=== PATIENT | male | born 1975 | race Caucasian/White ===

== ENCOUNTER 2021-11-26 12:47 | Outpatient (CLI) | payer OTHER, SELFPAY ==
--- NOTE | ~2021-11-26 | XR_ITS ---
EXAMINATION:XR_[id number]_CR DATE: 11/26/2021 13:04 INDICATION: Neck pain TECHNIQUE: AP, lateral, and odontoid views of the cervical spine are provided. COMPARISON: None FINDINGS: Alignment is normal. The odontoid is intact. No fracture is identified. Vertebral body heig hts and disk spaces are normal. Prevertebral soft tissues are normal. IMPRESSION: 1. No acute osseous abnormality. Reviewed, dictated and finalized at location F.
== END 2021-11-26 12:48 | disposition home or self-care (01) ==
PROVIDERS: PCP Family Medicine; Visit Provider Family Medicine
DX: M54.12 Radiculopathy, cervical region (principal)
CPT/HCPCS: 72040

== ENCOUNTER 2023-03-02 06:38 | Day surgery (SDC) | payer OTHER, SELFPAY ==
[2022-12-12 14:52] VITALS: BMI 34.5
[2023-02-10 14:55] VITALS: BMI 33.7
[2023-03-02 07:25] VITALS: BP 129/86; PULSE 95; RESP 14; TEMP 36.3; O2SAT 98
[2023-03-02] MEDS: LACTATED RINGERS 1,000 ML 150 ML IV CONT (07:26)
--- NOTE | 2023-03-02 07:45 | P.PNAN_ITS ---
Anes - Initial Pre Proc Eval Procedure: Operation Date: 03/02/23 08:30 Proposed Procedures p Screening Colonoscopy - Brennan Fairbanks MD Date/Time: 03/02/23 07:45 Surgeon: Brennan Fairbanks MD Pre Op Diagnosis: History of Colon Polyps Patient Data Age: 47 Gender: M Height: 1.83 m Weight: 116.3 kg Last Vital Signs Temp 36.3 C L 03/02/23 07:25 Pulse 95 03/02/23 07:25 Resp 14 03/02/23 07:25 BP 129/86 03/02/23 07:25 Pulse Ox 98 03/02/23 07:25 O2 Del Method Room Air 03/02/23 07:25 Allergies Allergy/AdvReac Type Severity Reaction Status Date / Time house dust Allergy Unknown unk Verified 03/02/23 07:14 mold Allergy Unknown unk Verified 03/02/23 07:14 No Known Allergies Allergy Verified 03/02/23 07:14 Home Medications Medication Instructions Recorded Confirmed Type fluticasone propionate 50 1 spray intranasal DAILY #9.9 mL 06/06/19 03/02/23 Rx mcg/actuation nasal spray,suspension (Flonase Allergy Relief) atorvastatin 20 mg tablet (Lipitor) 20 mg PO DAILY #90 tabs 12/18/22 03/02/23 Rx lisinopril 40 mg tablet 40 mg PO DAILY #90 tabs 12/18/22 03/02/23 Rx Patient hx anesthesia problems: none Family hx anesthesia problems: none Results Review: All pre-operative results and documents have been reviewed as part of the pre- operative evaluation. [facility] Past Medical History Medical History Acoustic neuroma HLD (hyperlipidemia) HTN (hypertension) Surgical History Surgical History (Updated 03/02/23 @ 07:45 by Santhosh Fair MD) History of nephrectomy Family History Family History Father Hypertension Cerebrovascular accident Social History Social History Smoking status: Never smoker Second hand tobacco smoke exposure: No Alcohol intake: current Drinks per week: 12 Substance use: never Substance use type: does not use Living arrangements: with family Occupation/Education: occupation Gender identity (if verbalized by the patient): Male Sexual Orientation (if Verbalized by the Patient): Straight or Heterosexual Spiritual care concerns: No Anes - Eval Final PreProcedure Day of Procedure 03/02/23 07:45 Patient weight: obese Heart: regular rate and rhythm Lungs: clear to auscultation Airway: Mallampati scale class II Neurological: alert and oriented Last oral intake: >/= 8 hours ASA classification: II Emergent: no Anesthetic plan: proceed Anesthesia type and monitoring: general GIVS and standard monitoring Results Review: All pre-operative results and documents have been reviewed as part of the pre- operative evaluation. Informed Consent: The patient's anesthetic plan and its attendant risks and benefits were discussed with the patient/family/POA. Questions were solicited and answers provided to the satisfaction of the patient/family/POA.
--- NOTE | 2023-03-02 08:22 | PM.HPGS ---
History of Present Illness History of Present Illness Consent: Risks, benefits, and alternatives have been discussed and questions answered. Patient agrees to proceed with procedure. Chief complaint: History of Colon Polyps Narrative: Luis Rogers is a 47 year old male with last colonoscopy 2014 Review of Systems Constitutional: Constitutional: Denies headache(s) and Denies weakness Eyes: Eyes: Denies blurry vision ENT: Reports Normal hearing present, Denies headache(s) and Denies neck pain Cardiovascular: Cardiovascular: Denies chest pain and Denies dyspnea Respiratory: Respiratory: Denies dyspnea Gastrointestinal: Gastrointestinal: Reports no additional gastrointestinal complaints Genitourinary: Genitourinary: Denies dysuria Musculoskeletal: Musculoskeletal: Denies neck pain Integumentary/Breasts: Skin/Breast: Denies dry skin Neurologic: Reports Normal hearing present, Denies headache(s) and Denies weakness Psychiatric: Psychiatric: Denies anxiety Endocrine: Endocrine: Denies change in body appearance Hematologic/Lymphatic: Hematologic/Lymphatic: Denies easy bleeding Allergic/Immunologic: Allergic/Immunologic: Denies urticaria PMFSH Past Medical History Medical History (Updated 03/02/23 @ 08:23 by Brennan Fairbanks MD) Acoustic neuroma Colon cancer screening HLD (hyperlipidemia) HTN (hypertension) Surgical History Surgical History (Updated 03/02/23 @ 07:45 by Santhosh Fair MD) History of nephrectomy Family History Family History Father Hypertension Cerebrovascular accident Social History Social History Smoking status: Never smoker Second hand tobacco smoke exposure: No Alcohol intake: current Drinks per week: 12 Substance use: never Substance use type: does not use Living arrangements: with family Occupation/Education: occupation Gender identity (if verbalized by the patient): Male Sexual Orientation (if Verbalized by the Patient): Straight or Heterosexual Spiritual care concerns: No Meds Home Medications and Allergies Home Medications Medication Instructions Recorded Confirmed Type fluticasone propionate 50 1 spray intranasal DAILY #9.9 mL 06/06/19 03/02/23 Rx mcg/actuation nasal spray,suspension (Flonase Allergy Relief) atorvastatin 20 mg tablet (Lipitor) 20 mg PO DAILY #90 tabs 12/18/22 03/02/23 Rx lisinopril 40 mg tablet 40 mg PO DAILY #90 tabs 12/18/22 03/02/23 Rx Allergies Allergy/AdvReac Type Severity Reaction Status Date / Time house dust Allergy Unknown unk Verified 03/02/23 07:14 mold Allergy Unknown unk Verified 03/02/23 07:14 No Known Allergies Allergy Verified 03/02/23 07:14 Vital Signs Vital Signs - 24 hr 03/02/23 07:25 Temperature 97.4 F L Pulse Rate 95 Respiratory Rate 14 Blood Pressure 129/86 Pulse Oximetry 98 Oxygen Delivery Room Air Exam Const: General: comfortable and no acute distress HENMT: Face/Nose/Sinus: Normal nares present Eyes: General: appearance normal, both eyes and all related structures Neck: Neck: no JVD Resp: Auscultation: clear to auscultation bilaterally Cardio: Rate: regular rate Rhythm: regular rhythm GI: Inspection: non-distended GI Palp: Yes Soft to palpation Skin: General skin exam: normal color Neuro: General: gait normal Speech: normal speech Extrem: General: normal to inspection Psych: Mental Status: mental status grossly normal Assessment and Plan Assessment and plan (1) Colon cancer screening: Code(s): Z12.11 - Encounter for screening for malignant neoplasm of colon Status: Acute Assessment and Plan: colonoscopy
[2023-03-02 08:42] VITALS: BP 118/85; PULSE 91; RESP 16; O2SAT 96
[2023-03-02 08:52] VITALS: BP 107/78; PULSE 90; RESP 16; O2SAT 98
[2023-03-02 09:02] VITALS: BP 116/77; PULSE 85; RESP 16; O2SAT 96
--- NOTE | 2023-03-02 10:24 | WPDANESPN ---
Anes - Prog Note Post-Op Date/Time: 03/02/23 10:24 Cardiovascular status: normal Respiratory status: normal Airway patency: baseline Mental status: baseline Post-Op hydration status: normal Vital Signs: Last Vital Signs Temp 36.3 C L 03/02/23 07:25 Pulse 85 03/02/23 09:02 Resp 16 03/02/23 09:02 BP 116/77 03/02/23 09:02 Pulse Ox 96 03/02/23 09:02 O2 Del Method Room Air 03/02/23 09:02 Pain Score (VAS): 0/10 I/O: Intake & Output 03/01/23 03/02/23 03/02/23 23:59 07:59 15:59 Intake Total 800 Balance 800 Patient Feedback: Patient satisfied with anesthetic care.
== END 2023-03-02 09:11 | disposition home or self-care (01) ==
PROVIDERS: PCP Family Medicine; Visit Provider Internal Medicine Gastroenterology
PROC: 0DJD8ZZ Inspection of Lower Intestinal Tract, Via Natural or Artificial Opening Endoscopic (ICD-10-PCS; CPT 45378; principal; 2023-03-02 08:30)
DX: Z12.11 Encounter for screening for malignant neoplasm of colon (principal); D12.4 Benign neoplasm of descending colon; K64.8 Other hemorrhoids
CPT/HCPCS: 45385

== ENCOUNTER 2023-03-02 09:00 | Outpatient (NON) | payer OTHER, SELFPAY | END 2023-03-02 09:01 | disposition home or self-care (01) | PROVIDERS: PCP Family Medicine; Visit Provider Internal Medicine Gastroenterology | DX: Z12.11 Encounter for screening for malignant neoplasm of colon (principal); D12.4 Benign neoplasm of descending colon | CPT/HCPCS: 88305 ==

== ENCOUNTER 2023-03-13 13:03 | Outpatient (CLI) | payer OTHER, SELFPAY ==
--- NOTE | ~2023-03-13 | XR_ITS ---
EXAMINATION: XR chest 2V Exam Date/Time: 03/13/2023 14:05 CDT HISTORY: R06.02 - Shortness of breath/ SOB AFTER EXERCISING Comparison: None. RESULT: Lines, tubes, and devices: None. Lungs and pleura: Clear. Cardiomediastinal silhouette: Normal. Other: No acute osseous or upper abdominal finding. IMPRESSION: No acute cardiopulmonary process. Reviewed, dictated and finalized at location K.
== END 2023-03-13 13:04 | disposition home or self-care (01) ==
PROVIDERS: PCP Family Medicine; Visit Provider Physician Assistant
DX: R06.02 Shortness of breath (principal); R06.2 Wheezing
CPT/HCPCS: 71046

== ENCOUNTER 2024-07-26 13:50 | Emergency (ER) | payer OTHER, SELFPAY ==
[2024-07-26 14:03] VITALS: BP 133/85; PULSE 94; RESP 18; TEMP 36.4; O2SAT 96
[2024-07-26 14:32] LABS: EDCOVIDSCREEN Negative (Negative); EDINFLUASCREEN Negative (Negative); EDINFLUBSCREEN Negative (Negative); EDSTREPNEGPOS1 Negative (Negative)
--- NOTE | 2024-07-26 14:41 | ED_ITS ---
HPI - URI/Sore Throat General Chief Complaint: Upper Respiratory Infection Stated Complaint: wheezing Time Seen by Provider: 07/26/24 14:20 Source: patient Mode of arrival: ambulatory Limitations: no limitations History of Present Illness HPI Narrative: 49 yo M presents with c/o cough, congestion, wheezing, fatigue for 2 to 3 days. Taking OTC meds with little relief of cough. 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 reports pneumonia exposure. All systems reviewed and negative except as noted above. Related Data Allergies Allergy/AdvReac Type Severity Reaction Status Date / Time house dust Allergy Unknown unk Verified 06/14/24 14:30 mold Allergy Unknown unk Verified 06/14/24 14:30 No Known Allergies Allergy Verified 07/26/24 14:03 Review of Systems Review of Systems: CONSTITUTIONAL: Denies fever, chills, or sweats. reports fatigue. EYES: Denies visual changes, redness, or discharge. ENT: reports rhinorrhea, congestion. Denies sore throat, or otalgia. CARDIOVASCULAR: Denies chest pain, palpitations, or edema. RESPIRATORY: Reports cough chest congestion, wheezing. Denies dyspnea. GASTROINTESTINAL: Denies abdominal pain, nausea, vomiting, or diarrhea. GENITOURINARY: Denies dysuria or hematuria. SKIN: Denies rash or itching. MUSCULOSKELETAL: Denies back pain, joint pain, or myalgia. NEUROLOGIC: Denies headache, numbness, or weakness. PSYCHIATRIC: Denies anxiety or depression. All other systems reviewed are negative, except as documented in HPI. FORMERLY [facility], [facility] Past Medical History Medical History Acoustic neuroma Colon cancer screening HLD (hyperlipidemia) HTN (hypertension) Surgical History Surgical History History of nephrectomy Family History Family History Father Hypertension Cerebrovascular accident Social History Social History Smoking status: Never smoker Second hand tobacco smoke exposure: No Alcohol intake: current Drinks per week: 12 Substance use: never Substance use type: does not use Living arrangements: with family Occupation/Education: occupation Gender identity (if verbalized by the patient): Male Sexual Orientation (if Verbalized by the Patient): Straight or Heterosexual Spiritual care concerns: No Comments At time of signature, agree with nursing past medical, surgical, social and family history. There is no relevant family history pertinent to the presenting complaint. Exam Narrative: GENERAL: This is a well-nourished, well-developed patient, in no apparent distress. HEAD: normocephalic, atraumatic. EYES: PERRL. Sclera clear/white. Vision is grossly intact. EARS: External ears normal, auditory canals clear and without drainage, TMs normal without perforation. Hearing grossly intact. NOSE: External nose normal with Clear nasal drainage, mild congestion THROAT: Mucous membranes moist, posterior pharynx clear. NECK: Neck supple, non-tender without lymphadenopathy, masses or thyromegaly. CARDIOVASCULAR: Regular rate and rhythm without murmurs, gallops, or rubs. RESPIRATORY: expiratory wheezing to upper lung aly otherwise clear. Breath sounds equal bilaterally. No rales, or rhonchi. SKIN: warm, Dry, intact with no suspicious lesions or rash, good texture and turgor. NEURO: awake, alert, and oriented to person, place and time. There were no obvious focal neurologic abnormalities. EXTREMITIES: No joint tenderness, effusion, or edema noted. Course Course Level of Care: Express Care Visit Vital Signs Vital signs: Vital Signs Temperature 36.4 C 07/26/24 14:03 Pulse Rate 94 07/26/24 14:03 Respiratory Rate 18 07/26/24 14:03 Blood Pressure 133/85 07/26/24 14:03 Pulse Oximetry 96 07/26/24 14:03 Oxygen Delivery Room Air 07/26/24 14:03 Temperature 36.4 C 07/26/24 14:03 Pulse Rate 94 07/26/24 14:03 Respiratory Rate 18 07/26/24 14:03 Blood Pressure 133/85 07/26/24 14:03 Pulse Oximetry 96 07/26/24 14:03 Oxygen Delivery Room Air 07/26/24 14:03 Reviewed MDM - URI/Sore Throat MDM Narrative Medical decision making narrative: negative COVID, influenza and strep. Will treat patient with antibiotic due to pneumonia exposure. Patient agrees with plan of care. No respiratory distress. Patient is aware of diagnosis, understands and agrees to treatment plan. Anticipatory guidance given. Patient agrees to follow-up as directed and is aware of reasons to seek care at the emergency department. Portions of this record may have been created with voice recognition software Lab Data Labs: Lab Results 07/26/24 Range/Units 14:29 POC Influenza A Ag Negative (Negative) POC Influenza B Ag Negative (Negative) POC SARS CoV-2 Ag Negative (Negative) POC Grp A Strep Screen Negative (Negative) Discharge Plan Discharge Clinical Impression: Upper respiratory infection with cough and congestion, Exposure to pneumonia Patient Disposition: Home, Self-Care Condition: Stable Instructions: Antibiotic Form, Upper Respiratory Infection (ED) Additional Instructions: Your COVID, influenza and strep test were negative today. Take medications as prescribed. Take Tylenol or ibuprofen every 6-8 hours as needed for pain and fever. Drink plenty of water and rest. Follow-up with your primary care physician if symptoms are not improving. Patient Language: Malaysian Prescriptions: New doxycycline hyclate 100 mg capsule 100 mg PO BID 7 Days Qty: 14 0RF benzonatate 200 mg capsule 200 mg PO TID PRN (Reason: cough) Qty: 20 0RF prednisone 20 mg tablet 40 mg PO DAILY 5 Days Qty: 10 0RF albuterol sulfate 90 mcg/actuation HFA aerosol inhaler 2 puff inhalation Q4-6H PRN (Reason: shortness of breath or wheezing) Qty: 8.5 0RF (DME) Aerochamber Plus Z Stat Spacer See Rx Instructions .Route Qty: 1 0RF Rx Instructions: As directed No Action albuterol sulfate 90 mcg/actuation HFA aerosol inhaler 2 puff inhalation Q6H PRN (Reason: shortness of breath or wheezing) Qty: 8.5 2RF lisinopril 40 mg tablet 40 mg PO DAILY Qty: 90 2RF atorvastatin 20 mg tablet See Rx Instructions .ROUTE .COMPLEX Qty: 90 3RF Dose Instruction: TAKE 1 TABLET DAILY Rx Instructions: TAKE 1 TABLET DAILY Follow-up/Referrals: Marcella,Bacilio Foster [Other] Time of Disposition: 14:35
== END 2024-07-26 14:43 | disposition home or self-care (01) ==
PROVIDERS: Emergency Provider Nurse Practitioner Family
DX: J06.9 Acute upper respiratory infection, unspecified (principal); R53.83 Other fatigue; I10 Essential (primary) hypertension; E78.5 Hyperlipidemia, unspecified; Z20.822 Contact with and (suspected) exposure to COVID-19
CPT/HCPCS: 87081; 87426; 87804; 87880; 99213; G0463